=== PATIENT | female | born 1975 | race African-American/Black ===

== ENCOUNTER 2024-11-13 09:08 | Emergency (ER) | payer OTHER ==
[2024-11-13 10:10] VITALS: BP 129/90; PULSE 103; RESP 20; TEMP 98.1; BMI 33.0
[2024-11-13 10:31] LABS: ABSOLUTE IMMATURE GRANULOCYTES 0.04 x10^3/uL (0.0-0.031); BASOPHILS # 0.06 x10^3/uL (0.01-0.08); EOSINOPHIL % 2.8 % (0.7-5.8); HEMOGLOBIN 13.8 g/dL (11.2-15.7); MCHC 33.7 g/dl (32.2-35.5); MEAN CELL VOLUME 101.2 fl (79.4-94.8); MEAN PLT VOLUME 11.2 fl (9.4-12.3); MONOCYTE # 0.57 x10^3/uL (0.24-0.86); MONOCYTE % 7.9 % (4.7-12.5); PLATELET COUNT 186 x10^3/uL (182-369); RDW 12.4 % (12.3-16.6)
[2024-11-13 10:39] LABS: INR 0.92 (0.83-1.09); PROTHROMBIN TIME (PATIENT) 10.1 SEC (9.7-13.0)
[2024-11-13 10:41] LABS: ACTIVATED PTT 18.7 SECONDS (25.2-36.5)
[2024-11-13 10:54] LABS: CHLORIDE 101 mmol/L (98-107); POTASSIUM 3.2 mmol/L (3.5-5.1); SODIUM 138 mmol/L (136-145)
[2024-11-13 10:56] LABS: CALCIUM 9.6 mg/dL (8.5-10.1)
[2024-11-13 10:57] LABS: ALBUMIN 3.4 g/dl (3.4-5.0); BLOOD UREA NITROGEN 10.5 mg/dL (7-18); GLUCOSE,RANDOM 117 mg/dL (74-106)
[2024-11-13 10:58] LABS: ANION GAP 10 mmol/L (4-13); CO2 27 mmol/L (21-32)
[2024-11-13 11:00] LABS: CREATININE 0.9 mg/dL (0.55-1.3); SGOT/AST 102 U/L (15-37); SGPT/ALT 120 U/L (13-61)
[2024-11-13 11:01] LABS: BILIRUBIN,TOTAL 1.2 mg/dL (0.2-1)
[2024-11-13 11:03] LABS: ALK PHOS 182 U/L (45-117)
[2024-11-13 11:22] LABS: BILIRUBIN,DIRECT 0.5 mg/dL (0.0-0.2)
== END 2024-11-13 15:17 | disposition home or self-care (01) ==
LOC: JER 09:08
DX: K76.0 Fatty (change of) liver, not elsewhere classified (principal); R79.89 Other specified abnormal findings of blood chemistry; K52.9 Noninfective gastroenteritis and colitis, unspecified; R17 Unspecified jaundice; F10.10 Alcohol abuse, uncomplicated; Y90.0 Blood alcohol level of less than 20 mg/100 ml; R74.01 Elevation of levels of liver transaminase levels
CPT/HCPCS: 36415; 76705-TC; 80053; 80307; 82248; 83690; 84703; 85025; 85610; 85730; 99284-25